=== PATIENT | male | born 1945 | race Caucasian/White ===

== ENCOUNTER 2017-03-20 15:15 | Inpatient (IN) | payer OTHER ==
[~2017-03-20] VITALS: Ht 177.8 cm; Wt 88.8 kg
[2017-03-20 16:44] LABS: HEMATOCRIT 27.1 % (38.0-50.0); HEMOGLOBIN 9.2 G/DL (12.5-16.6); MCH 32.5 PG (29.0-34.0); MCHC 33.9 G/DL (30.0-36.0); MCV 95.8 FL (86-99); PLATELET COUNT 124 K/uL (156-360); RBC DIS.WIDTH-CV 12.8 % (11.8-14.6); RBC DIS.WIDTH-SD 44.4 % (39-53); RED BLOOD COUNT 2.83 M/uL (4.00-5.50); WHITE BLOOD COUNT 11.3 K/uL (4.1-10.2)
[2017-03-20 16:48] LABS: INTER. NORMALIZED RATIO 1.3
[2017-03-20 16:54] LABS: CHLORIDE 103 mEq/L (99-109); POTASSIUM 4.1 mEq/L (3.7-5.4); SODIUM 138 mEq/L (136-147)
[2017-03-20 16:55] LABS: MAGNESIUM 1.9 mg/dL (1.3-2.7)
[2017-03-20 16:56] LABS: GLUCOSE 159 mg/dL (70-99)
[2017-03-20 17:00] LABS: CREATININE 1.1 mg/dL (0.6-1.3); GFR ESTIMATE (CALCULATED) > 59 mL/min/ (58.99-99999)
[2017-03-20 17:01] LABS: UREA NITROGEN (BUN) 20 mg/dL (9-23)
[2017-03-20 17:04] LABS: TROP-I INTERPRETATION NEGATIVE; TROPONIN-I 0.05 ng/mL (0.0-0.30)
[2017-03-20 20:14] LABS: TROP-I INTERPRETATION NEGATIVE; TROPONIN-I 0.04 ng/mL (0.0-0.30)
[2017-03-20] MEDS ORDERED: NEURONTIN400 MG PO (20:58)
[2017-03-20] MEDS ORDERED: CENTRUM SILVER1 EAC5 PO (20:58)
[2017-03-20] MEDS ORDERED: LOW DOSE ASPIRI81 M1 PO (20:59)
[2017-03-20] MEDS ORDERED: STOOL SOFTENER100 MG PO (21:00)
[2017-03-20] MEDS ORDERED: APRESOLINE50 MG PO (21:01)
[2017-03-20] MEDS ORDERED: NAMENDA10 MG PO (21:01)
[2017-03-20] MEDS ORDERED: CRESTOR20 MG PO (21:02)
[2017-03-20] MEDS ORDERED: DESYREL100 MG PO (21:02)
[2017-03-20] MEDS ORDERED: CYANOCOBALAM1000 MCG PO (21:02)
[2017-03-20] MEDS ORDERED: LOPID600 MG PO (21:03)
[2017-03-20] MEDS ORDERED: MORPHINE SULFAT15 M1 PO ×2 (21:04)
[2017-03-20] MEDS ORDERED: PRILOSEC20 MG PO (21:05)
[2017-03-20] MEDS ORDERED: TOPROL XL100 MG PO (21:06)
[2017-03-20] MEDS ORDERED: ZESTRIL40 MG PO (21:06)
[2017-03-20] MEDS ORDERED: GLUCOTROL5 MG PO ×2 (21:07→21:08)
[2017-03-20] MEDS ORDERED: ZOLOFT100 MG PO (21:08)
[2017-03-20] MEDS ORDERED: LASIX40 MG PO (21:09)
[2017-03-20] MEDS ORDERED: ZYBAN 150 MG T150 MG PO (21:09)
[2017-03-21 01:58] VITALS: BP 142/86
[2017-03-21 06:44] LABS: BASOPHIL (%) 0.2 % (0-1); EOSINOPHIL (%) 0.9 % (0-5); EOSINOPHIL COUNT 0.1 K/uL (0-0.3); HEMATOCRIT 26.7 % (38.0-50.0); IMMATURE GRANULOCYTE (%) 0.4 % (0.0-0.7); LYMPHOCYTE (%) 7.1 % (15-42); LYMPHOCYTE COUNT 0.7 K/uL (1.0-2.8); MCH 32.3 PG (29.0-34.0); MCHC 33.7 G/DL (30.0-36.0); MCV 95.7 FL (86-99); MONOCYTE (%) 12.2 % (3-12); MONOCYTE COUNT 1.2 K/uL (0-0.8); NEUTROPHIL (%) 79.2 % (45-76); NEUTROPHIL COUNT 7.8 K/uL (1.8-6.4); PLATELET COUNT 130 K/uL (156-360); RBC DIS.WIDTH-CV 12.5 % (11.8-14.6); RBC DIS.WIDTH-SD 43.6 % (39-53); RED BLOOD COUNT 2.79 M/uL (4.00-5.50); WHITE BLOOD COUNT 9.9 K/uL (4.1-10.2)
[2017-03-21 07:03] LABS: CHLORIDE 106 MEQ/L (99-109); CREATININE 0.8 MG/DL (0.6-1.3); GFR ESTIMATE (CALCULATED) > 59 mL/min/ (58.99-99999); GLUCOSE 130 mg/dL (70-99); POTASSIUM 3.8 MEQ/L (3.7-5.4); SODIUM 138 MEQ/L (136-147); UREA NITROGEN (BUN) 18 mg/dL (9-23)
[2017-03-21 07:30] VITALS: BP 176/83
[2017-03-21 12:00] VITALS: BP 155/69
[2017-03-21 16:04] VITALS: BP 136/63
[2017-03-21 19:41] VITALS: BP 168/81
[2017-03-21 23:33] VITALS: BP 149/69
[2017-03-22 06:23] LABS: HEMATOCRIT 28.4 % (38.0-50.0); HEMOGLOBIN 9.5 G/DL (12.5-16.6); MCH 31.9 PG (29.0-34.0); MCHC 33.5 G/DL (30.0-36.0); MCV 95.3 FL (86-99); RBC DIS.WIDTH-CV 12.6 % (11.8-14.6); RBC DIS.WIDTH-SD 44.3 % (39-53); RED BLOOD COUNT 2.98 M/uL (4.00-5.50); WHITE BLOOD COUNT 12.1 K/uL (4.1-10.2)
[2017-03-22 06:41] LABS: PLATELET COUNT 174 K/uL (156-360)
[2017-03-22 07:08] VITALS: BP 170/84
[2017-03-22 12:09] LABS: TROP-I INTERPRETATION NEGATIVE; TROPONIN-I 0.14 ng/mL (0.0-0.30)
[2017-03-22 16:20] VITALS: BP 160/77
[2017-03-22 17:11] LABS: TROP-I INTERPRETATION NEGATIVE; TROPONIN-I 0.21 ng/mL (0.0-0.30)
[2017-03-22 19:50] VITALS: BP 172/79
[2017-03-23 00:13] VITALS: BP 174/81
[2017-03-23 03:29] VITALS: BP 172/81
[2017-03-23 07:48] LABS: HEMATOCRIT 27.1 % (38.0-50.0); MCH 31.5 PG (29.0-34.0); MCHC 33.2 G/DL (30.0-36.0); MCV 94.8 FL (86-99); PLATELET COUNT 192 K/uL (156-360); RBC DIS.WIDTH-CV 12.7 % (11.8-14.6); RBC DIS.WIDTH-SD 44.2 % (39-53); RED BLOOD COUNT 2.86 M/uL (4.00-5.50); WHITE BLOOD COUNT 13.7 K/uL (4.1-10.2)
[2017-03-23 08:01] LABS: CHLORIDE 104 MEQ/L (99-109); POTASSIUM 3.6 MEQ/L (3.7-5.4); SODIUM 139 MEQ/L (136-147)
[2017-03-23 08:07] LABS: CREATININE 0.9 MG/DL (0.6-1.3); GFR ESTIMATE (CALCULATED) > 59 mL/min/ (58.99-99999); GLUCOSE 132 mg/dL (70-99); UREA NITROGEN (BUN) 18 mg/dL (9-23)
[2017-03-23 08:18] VITALS: BP 171/81
[2017-03-23 16:53] VITALS: BP 148/70
[2017-03-23 23:55] VITALS: BP 148/66
[2017-03-24 06:32] LABS: HEMATOCRIT 25.7 % (38.0-50.0); HEMOGLOBIN 8.8 G/DL (12.5-16.6); MCH 32.2 PG (29.0-34.0); MCHC 34.2 G/DL (30.0-36.0); MCV 94.1 FL (86-99); PLATELET COUNT 200 K/uL (156-360); RBC DIS.WIDTH-CV 12.5 % (11.8-14.6); RBC DIS.WIDTH-SD 43.3 % (39-53); RED BLOOD COUNT 2.73 M/uL (4.00-5.50); WHITE BLOOD COUNT 12.7 K/uL (4.1-10.2)
[2017-03-24 06:42] LABS: CHLORIDE 102 MEQ/L (99-109); CREATININE 0.9 MG/DL (0.6-1.3); GFR ESTIMATE (CALCULATED) > 59 mL/min/ (58.99-99999); GLUCOSE 137 mg/dL (70-99); POTASSIUM 3.4 MEQ/L (3.7-5.4); SODIUM 138 MEQ/L (136-147); UREA NITROGEN (BUN) 24 mg/dL (9-23)
[2017-03-24 07:47] VITALS: BP 145/72
[2017-03-24 11:24] VITALS: BP 137/91
[2017-03-24 15:56] VITALS: BP 127/66
[2017-03-25 03:40] VITALS: BP 135/67
[2017-03-25 07:31] LABS: HEMATOCRIT 27.8 % (38.0-50.0); HEMOGLOBIN 9.3 G/DL (12.5-16.6); MCH 32.2 PG (29.0-34.0); MCHC 33.5 G/DL (30.0-36.0); MCV 96.2 FL (86-99); RBC DIS.WIDTH-SD 45.5 % (39-53); RED BLOOD COUNT 2.89 M/uL (4.00-5.50); WHITE BLOOD COUNT 14.9 K/uL (4.1-10.2)
[2017-03-25 07:45] LABS: PLATELET COUNT 261 K/uL (156-360)
[2017-03-25 07:58] LABS: CHLORIDE 106 MEQ/L (99-109); CREATININE 0.9 MG/DL (0.6-1.3); GFR ESTIMATE (CALCULATED) > 59 mL/min/ (58.99-99999); POTASSIUM 3.8 MEQ/L (3.7-5.4); SODIUM 142 MEQ/L (136-147); UREA NITROGEN (BUN) 31 mg/dL (9-23)
[2017-03-25 08:00] LABS: GLUCOSE 98 mg/dL (70-99)
[2017-03-25 08:17] VITALS: BP 154/73
[2017-03-25] MEDS ORDERED: PREDNISONE10 MG PO (08:54)
[2017-03-25] MEDS ORDERED: SPIRIVA RESPIMAT4 GM IH (08:54)
[2017-03-25] MEDS ORDERED: AMLODIPINE BESY10 MG PO (08:54)
[2017-03-25] MEDS ORDERED: LEVAQUIN750 MG PO (09:16)
== END 2017-03-25 12:01 | disposition home or self-care (01) | DRG 205 ==
LOC: EME 15:15 → EDOF 22:53 → 3EAST 22:53 → ENRESERV 22:54 → 3EAST 03-21 01:48
PROVIDERS: Hospitalist; Physician Assistant
DX: J95.89 Other postprocedural complications and disorders of respiratory system, not elsewhere classified (principal); J18.9 Pneumonia, unspecified organism; J44.0 Chronic obstructive pulmonary disease with (acute) lower respiratory infection; J96.01 Acute respiratory failure with hypoxia; E78.5 Hyperlipidemia, unspecified; Z96.611 Presence of right artificial shoulder joint; I11.0 Hypertensive heart disease with heart failure; I50.22 Chronic systolic (congestive) heart failure; F17.200 Nicotine dependence, unspecified, uncomplicated; I25.10 Atherosclerotic heart disease of native coronary artery without angina pectoris; I25.5 Ischemic cardiomyopathy; I25.2 Old myocardial infarction; N40.0 Benign prostatic hyperplasia without lower urinary tract symptoms; E11.40 Type 2 diabetes mellitus with diabetic neuropathy, unspecified; F43.12 Post-traumatic stress disorder, chronic; M19.90 Unspecified osteoarthritis, unspecified site; I44.7 Left bundle-branch block, unspecified; I44.0 Atrioventricular block, first degree; M48.00 Spinal stenosis, site unspecified; E87.6 Hypokalemia
CPT/HCPCS: 71045; 71275; 80048; 82948; 83605; 83735; 83880; 84484; 85025; 85027; 85379; 85610; 87040; 87070; 87205; 87449; 93005; 93306; 94640; 94640 76; 94799; 99202; 99281; 99285; J0295; J0456; J0692; J1644; J1815; J1940; J2270; J2543; J2920; J3370; J7030; J7050; J7512